=== PATIENT | female | born 1950 | race Caucasian/White ===

== ENCOUNTER → 2023-12-23 13:28 | Outpatient (REF) | payer OTHER, SELFPAY | LOC: HWRAD 13:28 | PROVIDERS: ATTENDING PHYSICIAN Nurse Practitioner Family | DX: Z12.31 Encounter for screening mammogram for malignant neoplasm of breast (principal); M85.89 Other specified disorders of bone density and structure, multiple sites; Z13.820 Encounter for screening for osteoporosis | CPT/HCPCS: 77080 ==